=== PATIENT | male | born 1975 | race Caucasian/White ===

== ENCOUNTER → 2020-07-21 | Day surgery (SDC) | payer OTHER ==
[2020-07-21] VITALS (8 sets, daily range): BP systolic 100–159; BP diastolic 50–99
[~2020-07-21] VITALS: Ht 177.8 cm; Wt 97.5 kg
[~2020-07-21] MED LIST: DIPRIVAN IV ONE; LIDOCAINE 2% VIAL ONE; NS 1000ML 1,000 ML IV ONE; NS 1000ML 1,000 ML ONE; PANT40TA3 PO; SUBLIMAZE IV STA; SUBLIMAZE ONE; SUCR1ORA5 PO; WATER ONE
--- NOTE | 2020-07-21 13:27 | ER.PDOC ---
General Chief Complaint: General Complaint Stated Complaint: DIFFICULTY SWALLOWING TRAVEL OUT OF US: No Time seen by MD: 13:15 Source: patient Exam Limitations: no limitations History of Present Illness Initial Comments This 46-year-old male had a Maryam fundoplication done and since then has had 1 prior episode where his gotten food stuck right at the esophageal gastric junction. Today he literally is on his drive back home to [place] and stopped here for lunch. About 1130-12:00 he got a piece of hamburger stuck and he has not passed. Patient is not able to control his saliva. Patient knows that he is got something stuck. This is not his first time. Timing/Duration: 1/2 hour Severity: severe Modifying Factors: improves with eating Associated Symptoms: nausea/vomiting (Patient is not actively vomiting, he is burping up coughing up saliva.) Allergies: Coded Allergies: glucagon (Verified Allergy, Unknown, 07/21/20) Past Medical History Medical History: other Surgical History: other (Patient's had a Maryam fundoplication done 2 times.) Social History Smoking: non-smoker Alcohol Use: none Drug Use: none Review of Systems Gastrointestinal: see HPI All Other Systems: Reviewed and Negative Physical Exam General Appearance: No Apparent Distress, WD/WN EENT: eyes nml inspection Neck: Full Range of Motion Respiratory: chest non-tender, lungs clear, normal breath sounds, no respiratory distress CVS: reg rate & rhythm, no murmur, no gallop, pulses nml Gastrointestinal: Normal Bowel Sounds, No Organomegaly Extremities: Normal Range of Motion Neurologic/Psychiatric: wood scaler II-XII NML as Tested, No Motor/Sensory Deficits, Alert, Normal Mood/Affect, Oriented x 3 Skin: Normal Color, Warm/Dry Lymphatic: No Adenopathy Results/Orders Results/Orders Vital Signs Date Time Temp Pulse Resp B/P (MAP) Pulse Ox O2 Delivery O2 Flow Rate FiO2 07/21/20 13:08 98.0 89 24 159/89 (112) 98 Room Air 07/21/20 13:02 98.0 89 24 07/21/20 13:02 98.0 89 24 98 ER DEPART Departure Time of Disposition: 13:46 Disposition: 09 ADMITTED INPATIENT Impression: Primary Impression: Esophageal foreign body Condition: Stable Duration or Time Spent with Pa: 20m MIKA TREVIZO MD Jul 21, 2020 13:26
--- NOTE | 2020-07-21 14:15 | NUR ---
SURGERY EDYTA FELICIANONJANNIE RN IN ED FOR PATIENT TRANSPORT TO OR. VITALS STABLE, SOME MILD DISTRESS STILL PERSISTS FROM FB. REPORT GIVEN, BOTH NURSES VERBALIZED UNDERSTANDING AND DENY FURTHER QUESTIONS. PATIENT TAKEN OFF ER UNIT WITH OR NURSES.
--- NOTE | 2020-07-21 15:54 | PRM.OPH ---
Immediate Post Op Note Summary of Operation Date: Jul 21, 2020 Time: 15:51 Pre-Operative DX: Dysphagia with esophageal impaction Post-OP DX: Same Anesth.Used: Sedation Indications: This is a 45-year-old man with a history of chronic GERD who underwent Maryam fundoplication two years ago; this was followed by revisional surgery a few months later, in the setting of the wrap being 'too tight.' Patient had these procedures done in [place] by another provider. He has had manometry but does not recall results; he does not have operative reports with him today. He Underwent EGD with food extraction for an impaction 10 months ago; this was followed shortly thereafter by endoscopic dilation of the affected, narrowed area presumably within the wrap. Patient has since had occasional dysphagia mostly to solids. He encourages and is usually able to get food to pass by d rinking fluids with meals. He presents 3 hours after eating a hamburger with esophageal impaction. He is unable to tolerate his own secretions and endorses chest pain. He is afebrile and hemodynamically stable. The risks, benefits, alternatives to the procedure were discussed with the patient and he provided informed consent. Physician's Summary: Patient identification and the proposed procedure were verified prior to the procedure by the physician, the nurse, and the MANAGER ADULT. The procedure was verified in the pre-procedure area. ASA Grade Assessment: II After obtaining informed consent the patient underwent sedation. The endoscope was passed under direct vision. Throughout the procedure, the patient's pulse, blood pressure, and oxygen saturation were monitored continuously. The Endoscope was introduced into the mouth and advanced to the second part of the duodenum. I was present and participated during the entire procedure, including non-frederick portions, and during the administration and monitoring of moderate sedation. The upper GI endoscopy was accomplished without difficulty. The patient tolerated the procedure well. Findings: Esophagus: The Z-line was located at 45cm from the teeth. There was no evidence of a hiatal hernia. The wrap was identified and was narrowed; I encountered a large food bolus at the level of the GE junction, which was morcellated and ther eafter advanced completely into the gastric lumen. The wrap was traversed again with the scope, and the scope traversed it quite easily without forcing. There was some minor ulceration and edema within the esophagus at this level. Stomach: Normal appearing; retroflexion revealed no masses or ulceration. The 360-degree wrap was visible. The pylorus appeared normal. Duodenum: The entire duodenum appeared normal. Impression: Mild esophagitis at level of Maryam fundoplication wrap, which appeared somewhat narrowed though scope was able to traverse the area with ease Successful esophageal disimpaction Normal stomach Normal duodenum Recommendation: - Discharge with PPI and carafate; follow up with surgeon regarding consideration of reversal of fundoplication - Liquid/Full liquid for the next 24h; I encourage the patient to chew finely prior to swallows and to drink liquids liberally with meals - Dysphagia diet - Avoid smoking, alcohol use Assistants: Listed Assisting Physicians None Specimen(s) Removed: List Specimen: None Estimated Blood Loss: EBL/ESTIMATED BLOOD LOSS: (MIL: 0 Complications: Complications: None Assessment & Plan: Assessment & Plan: As above LONA HARTMAN MD Jul 21, 2020 15:54
== END | disposition home or self-care (01) ==
LOC: ER 13:00 → SDC 13:52
PROVIDERS: ATTEND Surgery
DX: T18.128A Food in esophagus causing other injury, initial encounter (principal); Z20.822 Contact with and (suspected) exposure to COVID-19; K21.00 Gastro-esophageal reflux disease with esophagitis, without bleeding; F41.9 Anxiety disorder, unspecified; Z90.49 Acquired absence of other specified parts of digestive tract; Z79.899 Other long term (current) drug therapy; Z79.82 Long term (current) use of aspirin; Z98.890 Other specified postprocedural states; X58.XXXA Exposure to other specified factors, initial encounter
CPT/HCPCS: 43247; 87426; 99285; J2001; J3010; J3490; J7030